=== PATIENT | male | born 1995 | race African-American/Black ===

== ENCOUNTER 2018-10-25 10:57 | Emergency (ER) | payer MEDICAID ==
[~2018-10-25] VITALS: Ht 172.7 cm; Wt 86.4 kg
[~2018-10-25 10:57] MED LIST: NOCURR
[2018-10-25] MEDS ORDERED: ACETAMINOPHEN 500 MG TABLET PO ONE (12:00)
[2018-10-25] MEDS ORDERED: BENZOCAINE/MENTHOL LOZENGE PO ONE (12:15)
[2018-10-25 13:22] VITALS: BP 147/73
== END 2018-10-25 13:48 | disposition home or self-care (01) ==
LOC: EMS 10:58
DX: J02.9 Acute pharyngitis, unspecified (principal); J45.909 Unspecified asthma, uncomplicated; F17.210 Nicotine dependence, cigarettes, uncomplicated; F12.90 Cannabis use, unspecified, uncomplicated; Z88.1 Allergy status to other antibiotic agents; Z88.2 Allergy status to sulfonamides
CPT/HCPCS: 87430; 99406

== ENCOUNTER 2019-10-11 03:15 | Emergency (ER) | payer MEDICAID ==
[~2019-10-11] VITALS: Ht 175.3 cm; Wt 90.9 kg
[2019-10-11] MEDS ORDERED: ALBUTEROL SULFATE 2.5 MG/0.5 ML NEB SOLUTION NEB ONE (03:45)
[2019-10-11] MEDS ORDERED: IPRATROPIUM BROMIDE 0.5 MG/2.5 ML NEB SOLUTION NEB ONE (03:45)
[2019-10-11 04:10] VITALS: BP 139/97
[2019-10-11] MEDS ORDERED: PredniSONE 20 MG TABLET PO ONE (04:15)
[2019-10-11] MEDS ORDERED: FAMOTIDINE 20 MG TABLET PO ONE (04:15)
[2019-10-11] MEDS ORDERED: DiphenhydrAMINE HCL 25 MG CAPSULE PO ONE (04:15)
== END 2019-10-11 05:30 | disposition home or self-care (01) ==
LOC: EMS 03:15
DX: T78.40XA Allergy, unspecified, initial encounter (principal); J45.909 Unspecified asthma, uncomplicated; F17.210 Nicotine dependence, cigarettes, uncomplicated; Z88.1 Allergy status to other antibiotic agents; Z88.2 Allergy status to sulfonamides; X58.XXXA Exposure to other specified factors, initial encounter
CPT/HCPCS: 94640; 99284; J7512